=== PATIENT | male | born 1955 | race Caucasian/White ===

== ENCOUNTER 2016-06-01 15:03 | Emergency (ER) | payer OTHER ==
[2016-06-01 15:08] VITALS: BP 146/81; BMI 36.5
--- NOTE | 2016-06-01 15:18 | DR.GENAD ---
HPI - PCP Primary Care Physician: CASTRO - Complaint/Symptoms Chief Complaint:: PT C/O HEEL TO LT FOOT CUT OFF. PT STATES IT JUST HAPPENED - Nurses notes reviewed Nurses Notes Review: Yes - Source History Provided: Patient - Mode of Arrival Mode of Arrival: Wheelchair - Timing Onset of Chief Complaint: 06/01/16 Came on: Suddenly - Duration Duration: Constant Duration: Minutes - Location Location: left heel avulsion - Severity Severity: Moderate - Modifying Factors Worsens:: nothing - Associated Signs and Symptoms Associated Signs and Symptoms: diabetic neuropathy PMH - PMH Past Medical History: Yes Past Medical History: CHF, CVA, Diabetes, [place] Past Surgical History: Yes Surgical History: Ortho Surgery - Family History History of Family Medical Conditions: No - Social History Does any household member use tobacco: No Alcohol Use: None Do you use any recreational Drugs:: No Lives With: Family Lives Where: Home - infectious screening In the last 2 months have you had wt loss of >10#?: NO Have you had fever, night sweats or hemotysis?: No Have you traveled outside the country in the last 6 months?: No Isolation: Standard ROS - Review of Systems Constitutional: No Symptoms Reported Eyes: No Symptoms Reported ENTM: No Symptoms Reported Respiratoy: No Symptoms Reported Cardiovascular: No Symptoms Reported Gastrointestinal/Abdominal: No Symptoms Reported Genitourinary: No Symptoms Reported Neurological: Numbness (diabetic neuropathy) Musculoskeletal: No Symptoms Reported Integumentary: Other (avulsion left heel) Hematologic/Lymphatic: No Symptoms Reported Psychiatric: No Symptoms Reported All Other Systems: Reviewed and Negative PE - Vital Signs Vitals: Temperature 98.6 F Pulse Rate 97 Respiratory Rate 20 Blood Pressure 146/81 O2 Sat by Pulse Oximetry 961 - General Limitations: No Limitations General Appearance: Alert, In No Apparent Distress - Head Head Exam: Normal Inspection - Eyes Eye exam: Normal Appearance, EOMI. negative: Scleral Icterus, Conjunctival Injection - ENT Nose Exam: Normal Nose Exam - Neck Neck Exam: Normal Inspection, Full ROM, Trachea Midline - Respiratory Respiratory Exam: negative: Accessory Muscle Use, Respiratory Distress - Extremities Extremities Exam: Full ROM, Tenderness (left heel). negative: Normal Inspection (left heel avulsion) - Neurologic Neurological Exam: Alert, Oriented X3, CN II-XII Intact - Psychiatric Psychiatric Exam: Normal Affect - Skin Skin Exam: Normal Color. negative: Intact (left heel avulsion) Procedures - Laceration/Wound Repair Left Foot Wound Length (cm): 4 Wound's Depth, Shape: Flap Wound Explored: clean Betadine Prep?: No Wound Repaired With: Dermabond Sterile Dressing Applied?: Yes - Diagnosis Discharge Problem: Laceration of foot Qualifiers: Encounter type: initial encounter Laterality: left Qualified Code(s): S91.312A - Laceration without foreign body, left foot, initial encounter - Discharge Plan Condition: Stable Prescriptions: Cephalexin [Keflex Cap 500 mg] 500 mg PO BID #20 cap - Follow ups/Referrals Follow ups/Referrals: MARIELLE CASTRO [Primary Care Provider] - 3 days - Instructions
== END 2016-06-01 16:06 | disposition home or self-care (01) ==
LOC: ER 15:46
PROC: 0YQN0ZZ Repair Left Foot, Open Approach (ICD-10-PCS; principal; 2016-06-01)
DX: S91.312A Laceration without foreign body, left foot, initial encounter (principal); W45.8XXA Other foreign body or object entering through skin, initial encounter; Y92.9 Unspecified place or not applicable
CPT/HCPCS: 12002; 99282

== ENCOUNTER → 2016-06-16 | Outpatient (CLI) | payer OTHER ==
[2016-06-01 15:08] VITALS: BP 146/81
[2016-06-16 09:16] LABS: BASOPHILS # (AUTO) 0.1 X10^3/uL (0.0-0.1); BASOPHILS % (AUTO) 1.3 % (0.2-1.0); EOSINOPHILS # (AUTO) 0.3 x10^3/uL (0.0-0.2); EOSINOPHILS % (AUTO) 4.6 % (0.9-2.9); HEMATOCRIT 26.9 % (42.0-54.0); HEMOGLOBIN 8.3 g/dL (13.5-18.0); MEAN CORPUSCULAR HEMOGLOBIN 22.8 pg (27.0-34.0); MEAN CORPUSCULAR HGB CONC 30.7 g/dL (33.0-35.0); MEAN CORPUSCULAR VOLUME 74.1 fL (80.0-100.0); MEAN PLATELET VOLUME 7.8 fL (7.4-11.0); MONOCYTES # (AUTO) 0.5 x10^3/uL (0.3-0.8); MONOCYTES % (AUTO) 7.7 % (0.0-13.0); NEUTROPHILS # (AUTO) 5.2 x10^3/uL (2.2-4.8); NEUTROPHILS % (AUTO) 72.4 % (42.0-75.0); PLATELET COUNT 219 X10^3/uL (150.0-450.0); RED BLOOD COUNT 3.63 X10^6/uL (4.7-6.0); WHITE BLOOD COUNT 7.1 X10^3/uL (3.6-10.0)
[2016-06-16 09:37] LABS: ALBUMIN 2.6 g/dL (3.4-5.0); CALCIUM 8.6 mg/dL (8.5-10.1); CARBON DIOXIDE 33.6 mmol/L (21-32); COR CA(FOR HYPOALB) 9.7 mg/dL (8.5-10.1); CREATININE 1.81 mg/dL (0.70-1.30); TOTAL PROTEIN 6.5 g/dL (6.4-8.2)
[2016-06-16 09:48] LABS: ANISOCYTOSIS SLIGHT; HYPOCHROMASIA 1+; MICROCYTOSIS SLIGHT; PLATELET MORPHOLOGY COMMENT NORMAL (NORMAL)
== END ==
LOC: LAB 08:53
PROVIDERS: ATTEND Obstetrics & Gynecology Obstetrics
DX: R60.1 Generalized edema (principal)
CPT/HCPCS: 36415; 80053; 85025

== ENCOUNTER 2017-03-23 11:27 | Emergency (ER) | payer OTHER ==
--- NOTE | 2017-03-23 11:43 | DR.GENAD ---
HPI - HPI Comment HPI Comment: HOME HEALTH NURSE WAS WITH PATIENT AND WANTED HIM EVALUATED. SPEACH CLEARING AND MORE RESPONSIVE IN ED. BP AND GLUCOSE ELEVATED. PATIENT ON HEMODIALYSIS. - Complaint/Symptoms Chief Complaint Doctors Comments: AMS. SUDDENLY HAD PROBLEM TALKING WITH SLURRED SPEACH AT HOME BEFORE COMING. - Nurses notes reviewed Nurses Notes Review: Yes - Source History Provided: Patient, Family Member - Mode of Arrival Mode of Arrival: Stretcher - Timing Came on: Suddenly - Duration Duration: Constant Duration: Hours - Severity Severity: Moderate PMH - PMH Past Medical History: CHF, CVA, Diabetes, [place] Past Surgical History: Yes Surgical History: Ortho Surgery - Social History Do you use any recreational Drugs:: No ROS - Review of Systems Constitutional: Weakness, Fatigue Eyes: negative: Eye Pain, Discharge ENTM: No Symptoms Reported Respiratoy: Short of Breath. negative: Wheezing, Hemoptysis Cardiovascular: Chest Pain, Edema Gastrointestinal/Abdominal: No Symptoms Reported. negative: Abdominal Pain, Diarrhea, Nausea, Vomiting Genitourinary: No Symptoms Reported Neurological: Problems Walking, Speech Problem (TRANSIENT TODAY) Musculoskeletal: Back Pain Integumentary: Change in Color Hematologic/Lymphatic: Easy Bleeding, Easy Bruising Endocrine: Increased Thirst, Increased Urine. negative: Flushing All Other Systems: Reviewed and Negative PE - Vital Signs Vitals: Pulse Rate [Apical] 53 Pulse Rate 80 Respiratory Rate 20 Blood Pressure [Right Arm] 188/81 Blood Pressure 208/98 O2 Sat by Pulse Oximetry 66 - General Limitations: Altered Mental Status (MILD) General Appearance: Alert - Head Head Exam: Normal Inspection - Eyes Eye exam: Normal Appearance, PERRL, EOMI. negative: Scleral Icterus, Conjunctival Injection - ENT ENT Exam: Normal External Ear Exam External Ear Exam: Normal External Inspection TM/Canal Exam: Bilateral Normal Nose Exam: Normal Nose Exam Mouth Exam: Normal Inspection Throat Exam: Normal Inspection - Neck Neck Exam: Trachea Midline - Chest Chest Inspection: Symmetric Chest Wall Rise - Respiratory Respiratory Exam: Respiratory Distress (MILD) Respiratory Exam: Bilateral Wheezing, Bilateral Rhonchi, Lower Wheezing, Lower Rhonchi - Cardiovascular Cardiovascular Exam: Bradycardia, Irregular Rhythm - Abdominal Exam Abdominal Exam: Normal Bowel Sounds, Soft. negative: Tenderness - Extremities Extremities Exam: Other (LT BKA) - Back Back Exam: Normal Inspection - Neurologic Neurological Exam: Alert, Oriented X3 - Psychiatric Psychiatric Exam: Anxious - Skin Skin Exam: Erythema MDM - Additional Information Additional Information Obtained From: Family - Differential Diagnosis Differential Diagnosis: AMD, CVA, TIA, A FIB/CONTROL RATE, HYPERTENSION, HYPERGLYCEMIA Course - Treatment Treatment: SEE ORDERS. NS, INSULIN AND BP MEDS IN ED. - Consultation Consultation Comments: NEPROLOGIST FOR PATIENT [place] SAID TO TRANSFER TO [facility]. DR. MCCLELLAN HOSPITALIST ACCEPTED PATIENT FOR TRANSFER. ROR - Labs Reviewed Laboratory Results Reviewed?: Yes Result Diagrams: 03/23/17 11:53 03/23/17 15:15 Laboratory: WBC 7.3 X10^3/uL (3.6-10.0) 03/23/17 11:53 RBC 3.87 X10^6/uL (4.7-6.0) L 03/23/17 11:53 Hgb 11.3 g/dL (13.5-18.0) L 03/23/17 11:53 Hct 35.7 % (42.0-54.0) L 03/23/17 11:53 MCV 92.2 fL (80.0-100.0) 03/23/17 11:53 MCH 29.1 pg (27.0-34.0) 03/23/17 11:53 MCHC 31.6 g/dL (33.0-35.0) L 03/23/17 11:53 RDW 16.5 % (11.6-16.5) 03/23/17 11:53 Plt Count 147 X10^3/uL (150.0-450.0) L 03/23/17 11:53 MPV 9.0 fL (7.4-11.0) 03/23/17 11:53 Neut % 79.7 % (42.0-75.0) H 03/23/17 11:53 Lymph % 10.2 % (21.0-51.0) L 03/23/17 11:53 Maverick % 6.1 % (0.0-13.0) 03/23/17 11:53 Eos % 3.3 % (0.9-2.9) H 03/23/17 11:53 Baso % 0.7 % (0.2-1.0) 03/23/17 11:53 Neut # 5.8 x10^3/uL (2.2-4.8) H 03/23/17 11:53 Lymph # 0.7 X10^3/uL (1.3-2.9) L 03/23/17 11:53 Maverick # 0.4 x10^3/uL (0.3-0.8) 03/23/17 11:53 Eos # 0.2 x10^3/uL (0.0-0.2) 03/23/17 11:53 Baso # 0.0 X10^3/uL (0.0-0.1) 03/23/17 11:53 Absolute Nucleated RBC 0.0 /100WBC 03/23/17 11:53 INR Target Range - 03/23/17 19:05 INR 2.89 (0.8-1.3) H 03/23/17 19:05 PTT 45.3 SECONDS (22.9-36.5) H 03/23/17 19:05 PTT Comment - 03/23/17 19:05 Sample Site Rr 03/23/17 13:20 ABG pH 7.340 (7.35-7.45) L 03/23/17 13:20 ABG pCO2 62.0 mmHg (35.0-45.0) H* 03/23/17 13:20 ABG pO2 79.0 mmHg (80.0-100.0) L 03/23/17 13:20 ABG HCO3 33.4 mmol/L (22-26) H* 03/23/17 13:20 ABG O2 Saturation 95.0 % (90-100) 03/23/17 13:20 ABG Base Excess 5.8 mmol/L (-2.0-2.0) H 03/23/17 13:20 Aquilino Test Pos 03/23/17 13:20 A-a Gradient 43.0 mmHg 03/23/17 13:20 FiO2 28.000 03/23/17 13:20 Blood Gas Comments Mann well gb 03/23/17 13:20 Sodium 136 mmol/L (136-145) 03/23/17 11:53 Corrected Sodium 148 mmol/L (136-145) H 03/23/17 11:53 Potassium 3.3 mmol/L (3.5-5.1) L 03/23/17 11:53 Chloride 98 mmol/L (98-107) 03/23/17 11:53 Carbon Dioxide 33.6 mmol/L (21-32) H 03/23/17 11:53 BUN 23 mg/dL (7-18) H 03/23/17 11:53 Creatinine 3.94 mg/dL (0.70-1.30) H 03/23/17 11:53 Est GFR (MDRD) Af Amer 20 (>60) L 03/23/17 11:53 Est GFR (MDRD) Non-Af 17 (>60) L 03/23/17 11:53 Glucose 506 mg/dL (65-99) H* 03/23/17 15:15 POC Glucose (mg/dL) 393 mg/dL (65-99) H 03/23/17 19:10 Lactic Acid 0.9 mmol/L (0.4-2.0) 03/23/17 11:53 Calcium 8.4 mg/dL (8.5-10.1) L 03/23/17 11:53 Corrected Calcium 9.4 mg/dL (8.5-10.1) 03/23/17 11:53 Total Bilirubin 0.50 mg/dL (0.2-1.0) 03/23/17 11:53 AST 12 Units/L (15-37) L 03/23/17 11:53 ALT 16 Units/L (12-78) 03/23/17 11:53 Alkaline Phosphatase 182 Units/L (46-116) H 03/23/17 11:53 Creatine Kinase 30 Units/L (39-308) L 03/23/17 11:53 CK-MB (CK-2) 2.3 ng/mL (0-4.0) 03/23/17 11:53 CK/CKMB % Calc 7.7 % (<4) 03/23/17 11:53 Troponin I 0.07 ng/mL (0-1.5) 03/23/17 11:53 C-Reactive Protein 7.40 mg/L (0-3.0) H 03/23/17 11:53 Total Protein 5.8 g/dL (6.4-8.2) L 03/23/17 11:53 Albumin 2.7 g/dL (3.4-5.0) L 03/23/17 11:53 Globulin 3.1 g/dL (2.5-4.5) 03/23/17 11:53 Albumin/Globulin Ratio 0.9 Ratio (1.1-2.1) L 03/23/17 11:53 Acetone, Semi-Quant Small (NEGATIVE) H 03/23/17 11:53 - XRAY XRAY Interpreted by: Radiologist XRAY Findings: REPORT DISCUSS WITH PATIENT AND FAMILY. - EKG Rhythm: Afib (RATE 58. EKG NOTED) - Diagnosis Discharge Problem: Mental status alteration, Hyperglycemia, Hypertension, Ketosis due to diabetes - Discharge Plan Disposition: 05 XFER OTHER Condition: Stable - Follow ups/Referrals Follow ups/Referrals: ,Misc [Primary Care Provider] - 3 days - Instructions
[2017-03-23 11:46] VITALS: BMI 30.2
[2017-03-23 12:09] LABS: BASOPHILS % (AUTO) 0.7 % (0.2-1.0); EOSINOPHILS # (AUTO) 0.2 x10^3/uL (0.0-0.2); EOSINOPHILS % (AUTO) 3.3 % (0.9-2.9); HEMATOCRIT 35.7 % (42.0-54.0); HEMOGLOBIN 11.3 g/dL (13.5-18.0); LYMPHOCYTES # (AUTO) 0.7 X10^3/uL (1.3-2.9); LYMPHOCYTES % (AUTO) 10.2 % (21.0-51.0); MEAN CORPUSCULAR HEMOGLOBIN 29.1 pg (27.0-34.0); MEAN CORPUSCULAR HGB CONC 31.6 g/dL (33.0-35.0); MEAN CORPUSCULAR VOLUME 92.2 fL (80.0-100.0); MONOCYTES # (AUTO) 0.4 x10^3/uL (0.3-0.8); MONOCYTES % (AUTO) 6.1 % (0.0-13.0); NEUTROPHILS # (AUTO) 5.8 x10^3/uL (2.2-4.8); NEUTROPHILS % (AUTO) 79.7 % (42.0-75.0); PLATELET COUNT 147 X10^3/uL (150.0-450.0); RED BLOOD COUNT 3.87 X10^6/uL (4.7-6.0); RED CELL DISTRIBUTION WIDTH 16.5 % (11.6-16.5); WHITE BLOOD COUNT 7.3 X10^3/uL (3.6-10.0)
--- NOTE | 2017-03-23 12:17 | RAD ---
Examination: Portable AP chest History: Weakness, slurred speech Findings: Mild cardiomegaly with significant vascular distention in the lungs. Opacity at the right b ase consistent with airspace disease and right pleural effusion. Large bore right IJ catheter extends to the right atrium. No pneumothorax seen. Impression: Upper normal heart size with pulmonary vascular congestion consistent with CHF. Associate d airspace disease right base with right pleural effusion. Reported By:
--- NOTE | 2017-03-23 12:21 | CT ---
STUDY: CT HEAD WITHOUT CONTRAST HISTORY: High blood pressure. Left-sided weakness since morning. Slurred speech. COMPARISON: None. TECHNIQUE: Multiple axial images of the head were obtained from the skull base to the vertex without administration of IV contrast. Automated exposure control (AEC) was utilized to adjust the MA and/or kV. Findings: The sulci, cisterns and ventricles are prominent consistent with diffuse volume loss. There are confluent and scattered foci of low attenuation in the periventricular and subcortical whit e matter of both hemispheres. This is a nonspecific finding which likely represents microangiopathic change in a patient of this age. There is no evidence of acute territorial infarction, hemorrhage, mass, mass effect or midline shift. There are no abnormal extra-axial fluid collections. There is no evidence of acute osseous abnormality or significant soft tissue swelling. IMPRESSION: 1. No evidence of acute intracranial abnormality. 2. Nonspecific white matter change and volume loss as described. 3. If there remains strong clinical concern for acute intracranial abnormality, then an MRI examinati on should be considered for further evaluation. Reported By:
[2017-03-23 12:24] LABS: ALBUMIN 2.7 g/dL (3.4-5.0); C-REACTIVE PROTEIN 7.4 mg/L (0-3.0); CALCIUM 8.4 mg/dL (8.5-10.1); CARBON DIOXIDE 33.6 mmol/L (21-32); CKMB % 7.7 % (<4); COR CA(FOR HYPOALB) 9.4 mg/dL (8.5-10.1); CREATINE KINASE MB 2.3 ng/mL (0-4.0); CREATININE 3.94 mg/dL (0.70-1.30); TOTAL PROTEIN 5.8 g/dL (6.4-8.2); TROPONIN I 0.07 ng/mL (0-1.5)
[2017-03-23] MEDS ORDERED: NIFEDIPINE CAP 10 MG PO ONE ×2 (13:08→20:01)
[2017-03-23] MEDS ORDERED: HumuLIN R IV ONE ×2 (13:09→14:52)
[2017-03-23] MEDS ORDERED: NIFEDIPINE CAP 10 MG ONE ×2 (13:14→20:02)
[2017-03-23] MEDS ORDERED: NS 1000 ML 1,000 ML ONE (13:14)
[2017-03-23] MEDS ORDERED: HumuLIN R ONE ×2 (13:15→15:06)
[2017-03-23] MEDS ORDERED: NS 1000 ML 1,000 ML IV ONE (13:15)
[2017-03-23 13:22] LABS: ABG BASE EXCESS 5.8 mmol/L (-2.0-2.0)
[2017-03-23 13:23] LABS: ABG ALLEN TEST POS; ABG HCO3 33.4 mmol/L (22-26)
[2017-03-23 18:52] VITALS: BP 188/81
[2017-03-23] MEDS ORDERED: SNACK - Diabetic Appropriate PO SCH (20:00)
== END 2017-03-23 20:08 | disposition short-term general hospital (02) ==
LOC: ER 11:33
DX: R73.9 Hyperglycemia, unspecified (principal); E10.10 Type 1 diabetes mellitus with ketoacidosis without coma; R41.82 Altered mental status, unspecified; I10 Essential (primary) hypertension
CPT/HCPCS: 36415; 36600; 70450; 71045; 80053; 82009; 82550; 82553; 82803; 82947; 83605; 84484; 85025; 85610; 85730; 86140; 87040; 93005; 93010; 96365; 96374; 99283; 99284; 99285; J1815

== ENCOUNTER 2017-06-25 20:59 | Emergency (ER) | payer OTHER ==
[2017-06-25 21:19] VITALS: BMI 29.5
[2017-06-25] MEDS ORDERED: XYLOCAINE 1 % (PLAIN) ONE (21:33)
--- NOTE | 2017-06-25 22:09 | DR.GENAD ---
HPI - PCP Primary Care Physician: KIERA - HPI Comment HPI Comment: HERE WITH PRESSURE DREESING APPLIED AT SITE OF BLEEDING. PATIENT DENIES DIZZINESS. - Complaint/Symptoms Chief Complaint Doctors Comments: AV SHUNTS LEFT AC BLEEDING AFTER DIALYSIS TODAY. WAS UNABLE TO STOP BLEEDING AT DIALYSISIS SITE. Chief Complaint:: TONO FROM [facility] REPOR[facility] "PRESSURE HAS BEEN HELD TO FISTULA FOR THE LAST 1 HR AND 10 MINS, AND WE CAN NOT GET IT TO STOP BLEEDING. HE DID RECIEVE HEPARIN 3000 UNITS BEFORE TREATMENT AT 1615 AND HE TAKES COUMADIN DAILY." [facility] TRANSPORTED PATIENT TO ER AND WILL BE TAKING PATIENT HOME. Self Treatment fo Chief Complaint: [facility] YE. DISPATCH # [id number] - Nurses notes reviewed Nurses Notes Review: Yes - Source History Provided: Patient, EMS, Other - Mode of Arrival Mode of Arrival: EMS - Timing Onset of Chief Complaint: 06/25/17 Came on: Suddenly - Duration Duration: Constant Duration: Hours - Severity Severity: Moderate PMH - PMH Past Medical History: Yes Past Medical History: CHF, CVA, Diabetes, Dialysis, [place] Past Surgical History: Yes Surgical History: Ortho Surgery - Family History History of Family Medical Conditions: No - Social History Alcohol Use: None Do you use any recreational Drugs:: No Lives Where: Home - infectious screening Have you traveled outside the country in the last 6 months?: No Isolation: Standard ROS - Review of Systems Constitutional: No Symptoms Reported Eyes: No Symptoms Reported ENTM: No Symptoms Reported Respiratoy: No Symptoms Reported Cardiovascular: No Symptoms Reported Gastrointestinal/Abdominal: No Symptoms Reported Genitourinary: No Symptoms Reported Neurological: No Symptoms Reported Musculoskeletal: No Symptoms Reported Integumentary: Other (LT AV SHUNT BLEEDING.) Hematologic/Lymphatic: Anemia Endocrine: No Symptoms Reported All Other Systems: Reviewed and Negative PE - Vital Signs Vitals: Temperature 98.1 F Pulse Rate [Right] 76 Pulse Rate 73 Respiratory Rate 20 Blood Pressure [Right Arm] 180/72 Blood Pressure 176/82 O2 Sat by Pulse Oximetry 91 - General General Appearance: Alert - Head Head Exam: Normal Inspection - ENT ENT Exam: Normal External Ear Exam TM/Canal Exam: Bilateral Normal Nose Exam: Normal Nose Exam Mouth Exam: Normal Inspection Throat Exam: Normal Inspection - Neck Neck Exam: Trachea Midline - Chest Chest Inspection: Symmetric Chest Wall Rise - Respiratory Respiratory Exam: Normal Lung Sounds Bilat Respiratory Exam: Bilateral Clear to Auscultation - Cardiovascular Cardiovascular Exam: Regular Rate, Normal Rhythm, Normal Heart Sounds - Abdominal Exam Abdominal Exam: Normal Bowel Sounds, Soft. negative: Tenderness - Extremities Extremities Exam: Other (LT BKA WITH PROSTHESIS.) - Neurologic Neurological Exam: Alert, Oriented X3 - Psychiatric Psychiatric Exam: Normal Affect, Normal Mood - Skin Skin Exam: Erythema MDM - Additional Information Additional Information Obtained From: Family - Differential Diagnosis Differential Diagnosis: HEMMORRHAGE FROM LT AV SHUNT. Course - Treatment Treatment: SEE ORDERS. - Education/Counseling Education/Counseling: Patient, Education Educated On: Diagnosis, Needs for Follow Up ROR - Labs Reviewed Laboratory: POC Glucose (mg/dL) 164 mg/dL (65-99) H 06/25/17 22:11 Procedures - Laceration/Wound Repair Left Elbow Anesthesia: 1% Lidocaine Progress: USING, 4-0 PLAIN CATGUT, [address] AV SHUNT GRAFT ANT BLEEDING SITE. BLEEDING CONTROL. PRESSURE DRESSING APPLIED. - Diagnosis Discharge Problem: Dialysis AV fistula malfunction Qualifiers: Encounter type: initial encounter Qualified Code(s): T82.590A - Other mechanical complication of surgically created arteriovenous fistula, initial encounter - Discharge Plan Disposition: HOME, SELF-CARE Condition: Stable - Follow ups/Referrals Follow ups/Referrals: LEYDI QURESHI [Primary Care Provider] - 2 days - Instructions Instructions: Dialysis Vascular Access Malfunction Additional Instructions: return toed if worse.
[2017-06-25 22:26] VITALS: BP 180/72
== END 2017-06-25 22:16 | disposition home or self-care (01) ==
LOC: ER 21:02
PROC: 0XQCXZZ Repair Left Elbow Region, External Approach (ICD-10-PCS; principal; 2017-06-25)
DX: I77.0 Arteriovenous fistula, acquired (principal); T82.590A Other mechanical complication of surgically created arteriovenous fistula, initial encounter
CPT/HCPCS: 96372; 99282; 99283; J2001